=== PATIENT | male | born 1985 ===

== ENCOUNTER 2016-10-12 18:56 | Emergency (ER) | payer OTHER ==
--- NOTE | ~2016-10-12 | ER ---
PATIENT'S NAME: BILLY GARCIA [facility] AGE: 31 Y [address] ROOM: [place] [id number] LOCATION: [facility] ADMIT DATE: 10/12/2016 ER/Outpatient Report DISCHARGE DATE: 10/12/2016 FAMILY PHYSICIAN: PHYSICIAN, NO ATTENDING PHYSICIAN: Cain Munguia Time of Arrival: 1934 hours. Time of Evaluation: 1934 hours. CHIEF COMPLAINT: Rash on his butt. HISTORY OF PRESENT ILLNESS: The patient is a 31-year-old male who presents to the emergency department today with chief complaint of rash on his butt. He reports it has been there for about 6 weeks. He was started on a cream by his primary care doctor, but he is unsure the name of the cream. He reports it is very itchy. Denies any fevers or chills. No nausea or vomiting. No diarrhea or constipation, in fact, currently mild in severity. PAST MEDICAL HISTORY: None. PAST SURGICAL HISTORY: None. SOCIAL HISTORY: The patient smoked 10 cigarettes for 15 years. Quit 3 months ago. Drinks alcohol socially. Denies any illicit drug use. ALLERGIES: NO KNOWN DRUG ALLERGIES. MEDICATIONS: Please see list. PRIMARY CARE DOCTOR: Out of town. REVIEW OF SYSTEMS: All systems are reviewed by myself and negative with the exception of those discussed in HPI and past medical history. PHYSICAL EXAMINATION: VITAL SIGNS: Weight 77.5 kg. Blood pressure 126/60, pulse 80, respiratory PATIENT'S NAME: BILLY GARCIA [facility] AGE: 31 Y [address] ROOM: [place] [id number] LOCATION: [facility] ADMIT DATE: 10/12/2016 ER/Outpatient Report DISCHARGE DATE: 10/12/2016 FAMILY PHYSICIAN: PHYSICIAN, NO ATTENDING PHYSICIAN: Cain Munguia rate 18, temperature 96.8, oxygen saturation 94% on room air. GENERAL: The patient is a 31-year-old male, appears stated age. Well- developed, well-nourished, in no acute distress. HEENT: Head: Normocephalic, atraumatic. Pupils are equal, round, and reactive to light. NECK: Supple. There is no nuchal rigidity. CARDIOVASCULAR: Regular rate and rhythm. No murmurs, rubs, or gallops. LUNGS: Clear to auscultation bilaterally. No wheezes, rales, or rhonchi. ABDOMEN: Soft, nontender, and nondistended. No rebound, rigidity, or guarding. MUSCULOSKELETAL: The patient moves all 4 extremities. Ambulates with steady gait. RECTAL: The patient does have erythematous rash surrounding the perianal region. There is no abscess. There is no fluctuance. IMPRESSION: 1. Rash NOS 2. Initial visit. EMERGENCY DEPARTMENT COURSE: I would recommend that we place him on Lotrisone as well as prednisone. I have asked he follows up with his primary care doctor in 2-3 days for re- evaluation. I have discussed return to care instructions including worsening symptoms or any other concerns to return to the emergency department as soon as possible. The patient is agreeable without further questions at this time. DISPOSITION: The patient discharged home in good condition. DO VEE HUTCHISON/clayton /[id number] d: 10/12/16 2321 t: 10/13/16 1906, OUTPATIENT REPORT
== END 2016-10-12 20:09 | disposition disaster alternative care site (69) ==
LOC: GMED 18:56
DX: R21 Rash and other nonspecific skin eruption (principal); Z87.891 Personal history of nicotine dependence